=== PATIENT | female | born 1965 | race Two or more races ===

== ENCOUNTER 2020-10-02 11:39 | Emergency (ER) | payer MEDICAID, OTHER ==
[~2020-10-02] VITALS: Ht 154.9 cm; Wt 84.8 kg
[2020-10-02 14:30] VITALS: BP 136/82
== END 2020-10-02 14:48 | disposition home or self-care (01) ==
LOC: ER 11:39
DX: J03.90 Acute tonsillitis, unspecified (principal); H10.32 Unspecified acute conjunctivitis, left eye